=== PATIENT | male | born 1995 | race Caucasian/White ===

== ENCOUNTER 2016-10-26 23:44 | Emergency (ER) | payer BC | END 2016-10-27 01:17 | disposition home or self-care (01) | LOC: ER 23:44 | DX: R10.31 Right lower quadrant pain (principal); R11.0 Nausea; F41.9 Anxiety disorder, unspecified; F17.290 Nicotine dependence, other tobacco product, uncomplicated; Z98.890 Other specified postprocedural states | CPT/HCPCS: 36415 ==